=== PATIENT | female | born 1940 | race Caucasian/White ===

== ENCOUNTER 2017-02-20 08:49 | Inpatient (IN) | payer MEDICARE, OTHER ==
[2017-02-20] MEDS ORDERED: SODIUM CHLORIDE 0.9% 1,000 ML IV STA (09:12)
[2017-02-20] MEDS ORDERED: SODIUM CHLORIDE 0.9% 500 ML IV STA (09:12)
--- NOTE | 2017-02-20 09:56 | CT ---
EXAMINATION TYPE: CT brain tosha paulino DATE OF EXAM: 02/20/2017 9:42 AM COMPARISON: NONE HISTORY: Fall, altered mental status CT DLP: [address] of the brain was performed. The ventricles, basal cisterns and sulci overlying the cerebral convexities demonstrate mild to moder ate enlargement. There is no evidence for intracranial hemorrhage or sulcal effacement. There is decreased attenuatio n about the periventricular white matter and deep white matter of both cerebral hemispheres, compatib le with chronic small vessel ischemia. No mass effects are seen. If symptoms persist consider MRI. Osseous calvarium is intact. IMPRESSION: 1. Age related atrophic and chronic small vessel ischemic change without acute intracranial process seen at this time. CT Cervical Spine: Unenhanced CT of the cervical spine was performed with bone and soft tissue window settings submitted . Coronal and sagittal reconstruction is obtained. There is normal alignment and prevertebral soft tissues. No evidence for acute cervical fracture . Scattered degenerative disc disease and spondylosis. Biapical scarring. Moderate to large left pleur al effusion. IMPRESSION: 1. No evidence for acute fracture or subluxation of the cervical spine.
--- NOTE | 2017-02-20 10:01 | ED ---
General Adult HPI - General Chief complaint: Fall Stated complaint: Altered Mental Status Time Seen by Provider: 02/20/17 08:57 Source: EMS, RN notes reviewed, old records reviewed Mode of arrival: EMS Limitations: altered mental status - History of Present Illness Initial comments: This is a 76-year-old female ER for evaluation. Patient was found down short time after being checked on this morning. Patient herself at this time is nonverbal. Patient's medical records are obtained from history and chart - Related Data Home Medications Medication Instructions Recorded Confirmed ALPRAZolam [Xanax] 0.25 mg PO HS PRN 02/20/17 02/20/17 Acetaminophen [Tylenol] 500 - 1,000 mg PO Q4-6H PRN 02/20/17 02/20/17 Amiodarone HCl [Pacerone] 200 mg PO BID 02/20/17 02/20/17 Aspirin EC [Ecotrin Low Dose] 81 mg PO DAILY 02/20/17 02/20/17 Atorvastatin [Lipitor] 20 mg PO HS 02/20/17 02/20/17 Cholecalciferol [Vitamin D3] 5,000 unit PO DAILY 02/20/17 02/20/17 Clopidogrel Bisulfate [Plavix] 75 mg PO DAILY 02/20/17 02/20/17 Furosemide [Lasix] 20 mg PO DAILY 02/20/17 02/20/17 Latanoprost Ophth [Xalatan 0.005%] 1 drops RIGHT EYE HS 02/20/17 02/20/17 Lisinopril [Prinivil] 20 mg PO DAILY 02/20/17 02/20/17 Loratadine [Claritin] 10 mg PO DAILY PRN 02/20/17 02/20/17 Metoprolol Succinate (ER) [Toprol 50 mg PO DAILY 02/20/17 02/20/17 Xl] Sennosides-Docusate Sodium 1 tab PO HS PRN 02/20/17 02/20/17 [Senokot-S] hydrALAZINE HCL [Apresoline] 10 mg PO QID 02/20/17 02/20/17 Allergies Allergy/AdvReac Type Severity Reaction Status Date / Time Sulfa (Sulfonamide Allergy Unknown Verified 02/20/17 09:19 Antibiotics) Review of Systems ROS Statement: Those systems with pertinent positive or pertinent negative responses have been documented in the HPI. ROS Other: All systems not noted in ROS Statement are negative. Past Medical History Past Medical History: Atrial Fibrillation, CVA/TIA, Hypertension Past Surgical History: Cardiac Valve Replacement Past Psychological History: No Psychological Hx Reported Smoking Status: Unknown if ever smoked Past Alcohol Use History: Unable to Obtain Past Drug Use History: Unable to Obtain General Exam Limitations: altered mental status General appearance: alert, in no apparent distress Head exam: Present: atraumatic, normocephalic, normal inspection Eye exam: Present: normal appearance, PERRL, EOMI. Absent: scleral icterus, conjunctival injection, periorbital swelling ENT exam: Present: normal exam, mucous membranes moist Neck exam: Present: normal inspection. Absent: tenderness, meningismus, lymphadenopathy Respiratory exam: Present: normal lung sounds bilaterally. Absent: respiratory distress, wheezes, rales, rhonchi, stridor Cardiovascular Exam: Present: regular rate, normal rhythm, normal heart sounds. Absent: systolic murmur, diastolic murmur, rubs, gallop, clicks GI/Abdominal exam: Present: soft, normal bowel sounds. Absent: distended, tenderness, guarding, rebound, rigid Extremities exam: Present: normal inspection, full ROM, normal capillary refill. Absent: tenderness, pedal edema, joint swelling, calf tenderness Back exam: Present: normal inspection Neurological exam: Present: alert, oriented X3, CN II-XII intact Psychiatric exam: Present: normal affect, normal mood Skin exam: Present: warm, dry, intact, normal color. Absent: rash Course Vital Signs 02/20/17 02/20/17 02/20/17 08:50 10:32 11:17 Temperature 98.7 F Pulse Rate 65 62 65 Respiratory 20 18 18 Rate Blood Pressure 158/86 215/88 137/80 O2 Sat by Pulse 91 L 99 99 Oximetry EKG Findings - EKG Comments: EKG Findings:: EKG shows normal sinus rhythm rate of 63, IL 158, QRS 96, QTc 466 Medical Decision Making - Medical Decision Making 76 female the ER for evaluation of altered mental status, fall with unknown downtime, patient with positive UTI weakness dehydration. Patient will be admitted for IV antibiotics and fluid resuscitation. - Lab Data Result diagrams: 02/20/17 11:15 02/20/17 11:15 Lab Results 02/20/17 02/20/17 02/20/17 Range/Units 11:15 11:15 11:26 WBC 13.5 H (3.8-10.6) k/uL RBC 3.91 (3.80-5.40) m/uL Hgb 11.7 (11.4-16.0) gm/dL Hct 37.9 (34.0-46.0) % MCV 96.9 (80.0-100.0) fL MCH 30.0 (25.0-35.0) pg MCHC 31.0 (31.0-37.0) g/dL RDW 14.3 (11.5-15.5) % Plt Count 275 (150-450) k/uL Neutrophils % 89 % Lymphocytes % 5 % Monocytes % 4 % Eosinophils % 0 % Basophils % 0 % Neutrophils # 12.0 H (1.3-7.7) k/uL Lymphocytes # 0.7 L (1.0-4.8) k/uL Monocytes # 0.5 (0-1.0) k/uL Eosinophils # 0.0 (0-0.7) k/uL Basophils # 0.0 (0-0.2) k/uL Hypochromasia Marked Sodium 137 (137-145) mmol/L Potassium 4.4 (3.5-5.1) mmol/L Chloride 99 (98-107) mmol/L Carbon Dioxide 24 (22-30) mmol/L Anion Gap 14 mmol/L BUN 20 H (7-17) mg/dL Creatinine 0.89 (0.52-1.04) mg/dL Est GFR (MDRD) Af Amer >60 (>60 ml/min/1.73 sqM) Est GFR (MDRD) Non-Af >60 (>60 ml/min/1.73 sqM) Glucose 146 H (74-99) mg/dL Calcium 9.2 (8.4-10.2) mg/dL Phosphorus 3.7 (2.5-4.5) mg/dL Magnesium 1.6 (1.6-2.3) mg/dL Total Bilirubin 0.8 (0.2-1.3) mg/dL AST 21 (14-36) U/L ALT 22 (9-52) U/L Alkaline Phosphatase 79 (38-126) U/L Total Protein 6.6 (6.3-8.2) g/dL Albumin 3.7 (3.5-5.0) g/dL Urine Color Light Yellow Urine Appearance Cloudy H (Clear) Urine pH 6.0 (5.0-8.0) Ur Specific [place] 1.009 (1.001-1.035) Urine Protein 3+ H (Negative) Urine Glucose (UA) Negative (Negative) Urine Ketones 1+ H (Negative) Urine Blood Small H (Negative) Urine Nitrite Negative (Negative) Urine Bilirubin Negative (Negative) Urine Urobilinogen <2.0 (<2.0) mg/dL Ur Leukocyte Esterase Large H (Negative) Urine RBC 13 H (0-5) /hpf Urine WBC 45 H (0-5) /hpf Ur Squamous Epith Cells 5 H (0-4) /hpf Amorphous Sediment Occasional H (None) /hpf Urine Bacteria Rare H (None) /hpf - Radiology Data Radiology results: report reviewed (CT brain and C-spine, chest x-ray and x-ray of pelvis are negative for traumatic injury), image reviewed Disposition Clinical Impression: Fall, Weakness, UTI (urinary tract infection), Altered mental state Disposition: ADMITTED IP TO THIS HOSP Condition: Fair Referrals: Kunal Rg MD [Primary Care Provider] - 1-2 days
--- NOTE | 2017-02-20 11:02 | XR ---
EXAMINATION TYPE: XR chest 1V DATE OF EXAM: 02/20/2017 10:47 AM COMPARISON: Prior chest x-ray January HISTORY: Pain, abnormal chest x-ray, found down TECHNIQUE: Single frontal view of the chest is obtained. FINDINGS: The patient is rotated and post median sternotomy. Aortic root stent is thought to be pres ent. Retrocardiac density is noted. Nodular density persists in the left midlung. Apical pleural thic kening again noted. There are overlying cardiac leads. Interstitium mildly increased. No evident pneu mothorax. Difficult to exclude an effusion on the left. IMPRESSION: Findings may be indicative of pulmonary venous hypertension and interstitial edema. Nadine elate clinically. There may be left lower lobe atelectasis versus pneumonia and associated effusion. Follow-up is recommended.
--- NOTE | 2017-02-20 11:03 | XR ---
AP pelvis HISTORY: Patient found on floor Single frontal view of the pelvis No comparisons Bone mineralization, joint spaces and alignment are maintained. Degenerative disc changes in the visu alized spine. Possible vascular calcifications within the pelvis. IMPRESSION: No fracture or dislocation.
[2017-02-20] MEDS: hydrALAZINE HCL 20 MG/ML 1 ML VIAL IVP STA ×2 (11:08→12:10)
[2017-02-20 11:37] LABS: Basophils % (A) 0 %; CH 29.8; CHCM 30.8; Eosinophils % (A) 0 %; HCT 37.9 % (34.0-46.0); HDW 3.11; HGB 11.7 gm/dL (11.4-16.0); Hypochromasia Marked; Luc # (Auto) 0.18; Luc % (Auto) 1; Lymphocytes # (A) 0.7 k/uL (1.0-4.8); Lymphocytes % (A) 5 %; MCV 96.9 fL (80.0-100.0); Mean Platelet Volume 7.7; Monocytes # (A) 0.5 k/uL (0-1.0); Monocytes % (A) 4 %; Neutrophils % (A) 89 %; RBC 3.91 m/uL (3.80-5.40); RDW 14.3 % (11.5-15.5); WBC 13.5 k/uL (3.8-10.6); WBC (Perox) 13.15
[2017-02-20 11:42] LABS: ALT 22 U/L (9-52); AST 21 U/L (14-36); Alkaline Phosphatase 79 U/L (38-126); Anion Gap 14 mmol/L; Blood Urea Nitrogen 20 mg/dL (7-17); Calcium 9.2 mg/dL (8.4-10.2); Carbon Dioxide 24 mmol/L (22-30); Chloride 99 mmol/L (98-107); Glucose 146 mg/dL (74-99); Magnesium 1.6 mg/dL (1.6-2.3); Non-African American GFR(MDRD) >60 (>60 ml/min/1.73 sqM); Phosphorous 3.7 mg/dL (2.5-4.5); Potassium 4.4 mmol/L (3.5-5.1); Sodium 137 mmol/L (137-145); Total Bilirubin 0.8 mg/dL (0.2-1.3); Total Protein 6.6 g/dL (6.3-8.2)
[2017-02-20 11:52] LABS: INR 1.1 (<1.1); Prothrombin Time 11.4 sec (9.0-12.0)
[2017-02-20 11:53] LABS: Amorphous Sediment,Urine Occasional /hpf; Appearance,Urine Cloudy (Clear); Bacteria,Urine Rare /hpf; Bilirubin,Urine Negative (Negative); Glucose,Urine (UA) Negative (Negative); Ketones,Urine 1+ (Negative); Leukocyte Esterase,Urine Large (Negative); Nitrite,Urine Negative (Negative); Particle Count 28583; Protein,Urine 3+ (Negative); RBC,Urine 13 /hpf (0-5); Specific Gravity,Urine 1.009 (1.001-1.035); Squamous Epithelial Cell,Urine 5 /hpf (0-4); UA Billing (MACRO vs. MICRO) MICRO; Urobilinogen,Urine <2.0 mg/dL (<2.0); WBC,Urine 45 /hpf (0-5)
[2017-02-20 11:59] LABS: Partial Thromboplastin Time 21.5 sec (22.0-30.0)
[2017-02-20 12:01] LABS: Creatine Kinase MB 1.9 ng/mL (0.0-2.4)
[2017-02-20 12:15] LABS: Troponin I 0.145 ng/mL (0.000-0.034)
[2017-02-20] MEDS ORDERED: HEPARIN SODIUM,PORCINE 5,000 UNIT/ML 1 ML VIAL IV ONE (12:17)
[2017-02-20] MEDS ORDERED: NITROGLYCERIN SL TABS 0.4 MG TAB SUBLINGUAL PRN (12:17)
[2017-02-20] MEDS ORDERED: HEPARIN SODIUM,PORCINE 5,000 UNIT/ML 1 ML VIAL IV PRN (12:17)
[2017-02-20] MEDS ORDERED: HEPARIN SODIUM,PORCINE/D5W PMX 25,000 UNIT in DEXTROSE/WATER 1 500ML.BAG IV SCH (12:30)
[2017-02-20] MEDS: SODIUM CHLORIDE 0.9% 1,000 ML IV SCH (13:32)
[2017-02-20] MEDS: ALPRAZolam 0.25 MG TAB PO PRN (17:41)
[2017-02-20] MEDS ORDERED: cloNIDine 0.1 MG/24HR PATCH 1 PATCH PATCH TRANSDERM SCH (18:00)
[2017-02-20] MEDS: LORazepam 2 MG/ML SYRINGE IV PRN (18:05)
[2017-02-20 18:33] LABS: Creatine Kinase MB 2.3 ng/mL (0.0-2.4)
[2017-02-20 18:36] LABS: Troponin I 0.196 ng/mL (0.000-0.034)
[2017-02-20] MEDS ORDERED: SENNOSIDES-DOCUSATE SODIUM 1 EACH TAB PO PRN (23:28)
[2017-02-20] MEDS ORDERED: RX INFO: IV CONTRAST WAS GIVEN 1 EACH MISC MISCELLANE PRN (23:34)
[2017-02-21] MEDS: LISINOPRIL 20 MG TAB PO SCH ×2 (00:38→10:26)
[2017-02-21] MEDS: ASPIRIN 81 MG CHEW PO SCH ×2 (00:38→10:26)
[2017-02-21] MEDS: AMIODARONE 200 MG TAB PO SCH (00:38)
[2017-02-21] MEDS: hydrALAZINE HCL 10 MG TAB PO SCH ×5 (00:38→20:37)
[2017-02-21 01:33] LABS: Creatine Kinase MB 2.2 ng/mL (0.0-2.4)
[2017-02-21 01:35] LABS: Troponin I 0.192 ng/mL (0.000-0.034)
[2017-02-21] MEDS: SODIUM CHLORIDE 0.9% 1,000 ML IV SCH ×3 (06:14→17:29)
[2017-02-21 06:49] LABS: Mean Platelet Volume 7.4
[2017-02-21 07:02] LABS: Cholesterol 163 mg/dL (<200); HDL Cholesterol 62 mg/dL (40-60); Triglycerides 96 mg/dL (<150)
[2017-02-21] MEDS ORDERED: ASPIRIN 325 MG TAB PO SCH (09:00)
[2017-02-21] MEDS ORDERED: ENOXAPARIN 40 MG/0.4 ML SYRINGE SQ SCH ×2 (09:00→10:30)
[2017-02-21] MEDS ORDERED: cefTRIAXone 1,000 MG in SODIUM CHLORIDE 0.9% 100 ML IVPB SCH (09:00)
--- NOTE | 2017-02-21 09:05 | P.PN ---
Progress Note - Text Psychiatric consult placed for 76 year female, for AMS. Patient was non verbal in ER, this morning she wakes easily with name called. She is unable to identify her full name, giving "Caryl" Unable to state where she is or todays date. Responds only with "no" or "I'm so tired". RN reports she was told this is a sudden and significant change in mental status. Will attempt again psychiatric evaluation later in day.
--- NOTE | 2017-02-21 09:08 | HP ---
DATE OF ADMISSION: 02/20/2017 PRESENTING COMPLAINT: Acute confusion. HISTORY OF PRESENTING COMPLAINT: This is a 76 -year-old patient of visiting physicians whose chronic stable medical conditions include atrial fibrillation, CHF, stroke, hyperlipidemia, hypertension, atrial fibrillation, blind in the left eye, glaucoma in the right eye. The patient lives at [facility]. Normally uses a cane to get about. She does her own ADL's including showers herself, takes the bus, walks to [facility] and back. Staff administers medication. Patient was brought into the ER. She was last seen in the morning and then she was found down on the floor between the bed and the night stand. EMS reports that patient responded to verbal opening her eyes, not talking, not able to answer questions. At baseline, the patient has some confusion, otherwise, does rather well. Patient came to the floor and when came to the floor, blood pressure was running high. Was not able to take any of her medications. Hence, has a Catapres patch and patient was rather agitated and had to be given some Ativan. Patient currently somnolent, not able to give history by herself. Review of systems cannot be done because patient rather somnolent. PAST MEDICAL HISTORY: Atrial fibrillation, congestive heart failure, stroke, hyperlipidemia, hypertension, atrial fibrillation, blind left eye. PAST SURGICAL HISTORY: Aortic valve replacement at [facility] December 2016. SOCIAL HISTORY: Lives at [place]. Patient smoked several years; stopped about 20 to 30 years ago. Family history of skin cancer. HOME MEDICATIONS: 1. Claritin 10 mg p.o. daily p.r.n. 2. Xalatan 0.005% one drop to right eye at bedtime. 3. Plavix 75 p.o. daily. 4. Prinivil 20 mg p.o. daily. 5. Aspirin 81 mg p.o. daily. 6. Tylenol. 7. Xanax 0.25 p.o. q.h.s. p.r.n. 8. Hydralazine 10 mg p.o. q.i.d. 9. Senokot-S one tablet p.o. q.h.s. 10. Vitamin D3 5000 units p.o. daily. 11. Toprol-XL 50 mg p.o. daily. 12. Lasix 20 mg p.o. daily. 13. Lipitor 20 mg p.o. q.h.s. 14. Amiodarone 200 mg p.o. b.i.d. ALLERGIES TO SULFA. On examination, temperature 98 on presentation: Temperature 98.7, pulse 59, respiration 20, blood pressure 150/86, pulse ox 91% on room air. Repeat blood pressure gone up to 220/85. GENERAL APPEARANCE: Average build, lying in bed somnolent. EYES: Cataract in the left eye. ( ) conjunctivae irregular left pupil. HEENT: External appearance of nose and ears normal. Oral cavity missing teeth. NECK: JVD not raised. Mass not palpable. RESPIRATORY: Effort normal. LUNGS: Decreased breath sounds. CARDIOVASCULAR: First and second sounds normal. No edema. ABDOMEN: Soft, nontender. Liver and spleen not palpable. LYMPHATIC: No lymph node palpable in neck or axillae. PSYCHIATRY: Unable to assess. NEUROLOGICAL: Left pupil is abnormal. No facial asymmetry. There is no stiffness ( ) limb. Dermatological: Bruising of both the arms distally. No breakdown of skin. 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 Plantars equivocal. INVESTIGATIONS: White count 13.5, hemoglobin 11.7, potassium 4.4. BUN 20, creatinine 0.89, troponin 0.145, 0.196. UA positive for leukocyte esterase and WBC. CT scan of the head and neck and cervical spine shows age-related atrophic changes. ASSESSMENT: 1. This is a patient who presents with was found on just mumbling. This well could be a brain stem stroke affecting the ventricular ( ) system and having alteration of sensorium. Also contribution from urinary tract infection definitely possible, that of which could be causing acute delirium. 2. Hypertensive urgency present on admission. 3. Chronic congestive heart failure, ejection fraction not known. 4. Hyperlipidemia. 5. Paroxysmal atrial fibrillation, currently may be in sinus rhythm. 6. CODE STATUS: DNR. PLAN: Neuro checks are in place. Patient has a small troponin leak, but I doubt this is acute coronary syndrome especially in the face of her stroke, heparin may be more detrimental. Aspiration precautions will be maintained. We will do a repeat CT in the morning with contrast. Overall prognosis is guarded given her age. CODE STATUS: DNR. [place] to Visiting Physician.
--- NOTE | 2017-02-21 09:20 | P.CN ---
Psychiatric Consult - . Consult date: 02/21/17 Consult:: 02/21/17 09:10 DATE OF SERVICE: [02/21/2017] IDENTIFYING DATA: This patient is a [76-year-old]-year-old [female ] who was admitted to the mental health unit through [emergency room]. HISTORY OF PRESENT ILLNESS: The patient the patient was found down on the floor and brought to the emergency room where was reported she was nonverbal. She was in her usual state of health when staff at the [facility] found her down on the floor between her bed and her nightstand. She normally ambulates with a cane and does her own ADLs including showering herself she [place] and [place]. She was nonverbal in the emergency room last night UTI is suspected as well as possible vascular cause. PAST PSYCHIATRIC HISTORY: [No family members at bedside, no known psychiatric history.]. MENTAL STATUS EXAM: [Patient awoke with her name being called, was unable to identify herself location or date. He could only respond with "no" and "I'm so tired"]. IMPRESSIONS: Patient with second change in mental status. Workup in progress of possible vascular cause, as well as UTI. PLAN: [We will follow along with you.].
[2017-02-21] MEDS: CLOPIDOGREL 75 MG TAB PO SCH (10:26)
[2017-02-21] MEDS: METOPROLOL SUCCINATE (ER) 50 MG TAB.ER.24H PO SCH (10:26)
--- NOTE | 2017-02-21 10:57 | ECHOF ---
Referral Reason:elev trop MEASUREMENTS -------- HEIGHT: 157.5 cm WEIGHT: 59.0 kg BP: 181/74 RVIDd: 2.9 cm (< 3.3) IVSd: 1.4 cm (0.6 - 1.1) LVIDd: 4.0 cm (3.9 - 5.3) LVPWd: 1.5 cm (0.6 - 1.1) IVSs: 1.7 cm LVIDs: 2.6 cm LVPWs: 2.0 cm LA Diam: 3.7 cm (2.7 - 3.8) LAESV Index (A-L): 37.83 ml/m Ao Diam: 2.4 cm (2.0 - 3.7) MV EXCURSION: 14.273 mm (> 18.000) MV EF SLOPE: 106 mm/s (70 - 150) EPSS: 0.9 cm MV E Toby: 0.83 m/s MV DecT: 188 ms MV A Toby: 0.94 m/s MV E/A Ratio: 0.87 AV maxP.34 mmHg AV meanP.08 mmHg RAP: 5.00 mmHg RVSP: 32.25 mmHg FINDINGS -------- Sinus rhythm with extra systolic beats. This was a technically difficult study with suboptimal views. The left ventricular size is normal. There is moderate concentric left ventricular hypertrophy. Overall left ventricular systolic function is low-normal with, an EF between 50 - 55 %. The right ventricle is normal in size. LA is moderately dilated 34-39 ml/m2 The right atrium was not well visualized. Peak/mean gradient across the Aortic Valve is 34.34mmHg / 15.08mmHg. There is mild regurgitation of the bioprosthetic aortic valve. The mitral valve leaflets are moderately thickened. Moderate mitral annular calcification present. Sqal-sk-[id number] mitral regurgitation is present. Mild tricuspid regurgitation present. Right ventricular systolic pressure is normal at < 35 mmHg. The aortic root size is normal. Normal inferior vena cava with normal inspiratory collapse consistent with estimated right atrial pressure of 5 mmHg. The pericardium is normal. CONCLUSIONS -------- 1. Sinus rhythm with extra systolic beats. 2. The mitral valve leaflets are moderately thickened. 3. Moderate mitral annular calcification present. 4. [id number] mitral regurgitation is present. 5. Mild tricuspid regurgitation present. 6. Right ventricular systolic pressure is normal at < 35 mmHg. 7. The aortic root size is normal. 8. Normal inferior vena cava with normal inspiratory collapse consistent with estimated right atrial pressure of 5 mmHg. 9. The pericardium is normal. 10. This was a technically difficult study with suboptimal views. 11. The left ventricular size is normal. 12. There is moderate concentric left ventricular hypertrophy. 13. The right ventricle is normal in size. 14. LA is moderately dilated 34-39 ml/m2 15. The right atrium was not well visualized. 16. Peak/mean gradient across the Aortic Valve is 34.34mmHg / 15.08mmHg. 17. There is mild regurgitation of the bioprosthetic aortic valve. ASSOCIATE RELATIONS SPECIALIST: Leatha Weller RDCS
--- NOTE | 2017-02-21 15:05 | US ---
EXAMINATION TYPE: US carotid duplex BILAT DATE OF EXAM: 02/21/2017 2:51 PM COMPARISON: NONE CLINICAL HISTORY: collapse. fall, AMS, poor historian Suboptimal scan due to patient unable to cease talking and move head. 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 Plaque in bulb and CCA. Elevated right ECA. N o flow detected in left CCA. Criteria for Assigning % of Stenosis / Diameter reduction (Estimation based on the indirect measurements of the internal carotid artery velocities (ICA PSV). 1. Normal (no stenosis)=ICA PSV < 125 cm/s: ratio < 2.0: ICA EDV<40 cm/s. 2. Less than 50% stenosis=ICA PSV < 125 cm/s: ratio < 2.0: ICA EDV<40 cm/s. 3. 50 to 69% stenosis=ICA PSV of 125 to 230 cm/s: ration 2.0 ? 4.0: ICA EDV 40-100 cm/s. 4. Greater than 70% stenosis to near occlusion= ICA PSV > 230 cm/s: ratio > 4.0: ICA EDV > 100 cm/s. 5. Near occlusion= ICA PSV velocities may be low or undetectable: variable ratio and ICA EDV. 6. Total occlusion=unable to detect flow.
--- NOTE | 2017-02-21 16:29 | CT ---
EXAMINATION TYPE: CT angio head DATE OF EXAM: 02/21/2017 4:07 PM COMPARISON: Previous CT scan of the brain dated 02/20/2017. HISTORY: Patient having possible stroke, AMS CT DLP: 1101 mGycm Automated exposure control for dose reduction was used. TECHNIQUE: Performed with IV Contrast, patient injected with 100 mL of Omnipaque 350. FINDINGS: There are generalized changes of sulcal prominence and ventriculomegaly compatible with atr ophic change. Ventriculomegaly may be out of keeping with the amount of sulcal prominence. I could no t exclude some degree of normal pressure hydrocephalus. There has been interval development of a smal l area of lucency in the erazo radiata on the left. This was not present previously and may represen t a lacunar infarct. There is a origin to the right posterior cerebral artery. The left vertebral artery is dominant . There is an occlusion of the M1 segment of the left middle cerebral artery. This is partially reconst ituted via a patent anterior communicating artery. IMPRESSION: 1. 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 2. EVOLVING INFARCT IN THE ERAZO RADIATA ON THE LEFT. 3. ATROPHIC CHANGES. 4. I COULD NOT EXCLUDE SOME DEGREE OF NORMAL PRESSURE HYDROCEPHALUS.
[2017-02-21] MEDS: ATORVASTATIN 20 MG TAB PO SCH (17:28)
--- NOTE | 2017-02-21 18:25 | P.CONS ---
History of Present Illness - Reason for Consult Consult date: 02/21/17 Altered mental status - History of Present Illness This is a 76-year-old female being evaluated by the neurology service for altered mental status and fall. She lives at [facility], and is self- sufficient with her ADLs on a daily basis. Found down on the floor in her room by the bed. She was brought in to [facility] emergency room via EMS. She was not responding to commands and she was nonverbal. In the ER her lab values were relatively normal. A CT of the cervical spine showed no trauma. Initial CT of the head showed some atrophic changes along with some chronic small vessel ischemic changes but there was no acute intracranial abnormality. Pelvic exam showed no fracture. Her carotid Doppler was limited due to movement but did show significant stenosis of the right CCA, and elevated pressure in the right external carotid artery. There was no flow detected in the left common carotid artery. A subsequent CTA of the head did show occlusion of the M1 segment of the left middle cerebral artery with partial reconstruction via a patent anterior communicating artery. There was a new small area of infarct in the erazo radiata on the left. There was also some possibility of normal pressure hydrocephalus. Her urinalysis did show a urinary tract infection. Her blood pressure on presentation was quite elevated and remains somewhat elevated. At the time of my exam she is resting comfortably in bed in no acute distress. 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 History of Any Multi-Drug Resistant Organisms: None Reported Past Surgical History: Cardiac Valve Replacement Additional Past Surgical History / Comment(s): 12/2016 aortic valve replacement at [facility]. Other surgeries unknown. Past Anesthesia/Blood Transfusion Reactions: No Reported Reaction Past Psychological History: Anxiety Additional Psychological History / Comment(s): Pt resides at [facility]. She uses a cane most of the time. She performs her own ADLs. She showers herself, takes the bus out, walks to the light house and back. Staff manage her medications. Smoking Status: Former smoker Past Alcohol Use History: None Reported Additional Past Alcohol Use History / Comment(s): Pt started smoking about 1952 and has mentioned to [place] staff that she quit about 20-30 yrs ago. Past Drug Use History: None Reported - Past Family History Mother Family Medical History: Cancer Additional Family Medical History / Comment(s): skin cancer. Father Family Medical History: Unable to Obtain Medications and Allergies Home Medications Medication Instructions Recorded Confirmed Type ALPRAZolam [Xanax] 0.25 mg PO HS PRN 02/20/17 02/20/17 History Acetaminophen [Tylenol] 500 - 1,000 mg PO Q4-6H PRN 02/20/17 02/20/17 History Amiodarone HCl [Pacerone] 200 mg PO BID 02/20/17 02/20/17 History Aspirin EC [Ecotrin Low Dose] 81 mg PO DAILY 02/20/17 02/20/17 History Atorvastatin [Lipitor] 20 mg PO HS 02/20/17 02/20/17 History Cholecalciferol [Vitamin D3] 5,000 unit PO DAILY 02/20/17 02/20/17 History Clopidogrel Bisulfate [Plavix] 75 mg PO DAILY 02/20/17 02/20/17 History Furosemide [Lasix] 20 mg PO DAILY 02/20/17 02/20/17 History Latanoprost Ophth [Xalatan 0.005%] 1 drops RIGHT EYE HS 02/20/17 02/20/17 History Lisinopril [Prinivil] 20 mg PO DAILY 02/20/17 02/20/17 History Loratadine [Claritin] 10 mg PO DAILY PRN 02/20/17 02/20/17 History Metoprolol Succinate (ER) [Toprol 50 mg PO DAILY 02/20/17 02/20/17 History Xl] Sennosides-Docusate Sodium 1 tab PO HS PRN 02/20/17 02/20/17 History [Senokot-S] hydrALAZINE HCL [Apresoline] 10 mg PO QID 02/20/17 02/20/17 History Allergies Allergy/AdvReac Type Severity Reaction Status Date / Time Sulfa (Sulfonamide Allergy Unknown Verified 02/20/17 09:19 Antibiotics) Physical Exam Vitals: Vital Signs Temp Pulse Resp BP Pulse Ox 02/21/17 16:00 97.2 F L 55 L 17 165/64 98 02/21/17 12:00 48 L 18 170/74 99 02/21/17 08:00 97.4 F L 53 L 17 160/76 100 02/21/17 04:00 97.5 F L 52 L 18 96/51 99 02/21/17 00:00 52 L 18 161/55 99 02/20/17 20:00 98.9 F 51 L 16 138/59 100 Intake and Output 02/21/17 02/21/17 02/21/17 06:59 14:59 22:59 Intake Total 0 Balance 0 Intake: Oral 0 Other: Voiding Method Toilet Toilet Toilet Diaper Diaper # Voids 1 2 Weight 52 kg - Constitutional General appearance: no acute distress, thin - EENT Left eye clouding, likely from chronic cataracts and/or glaucoma Eyes: edentulous, EOMI, no ptosis ENT: hard of hearing - Neck Neck: normal ROM, no rigidity - Respiratory Respiratory: negative: prolonged expiration, prolonged inspiration - Cardiovascular Rhythm: irregularly irregular - Gastrointestinal General gastrointestinal: no distended, no tenderness - Neurologic Patient is awake and oriented to person only. Speech is normal. She is somewhat confused, but answers appropriately and follows commands well. Naming is intact. There is no facial asymmetry. Strength is 4 out of 5 in right upper and lower extremities 4 minus out of 5 and left upper and lower extremities. There is no detected sensory deficit. Results CBC & Chem 7: 02/21/17 06:19 02/20/17 11:15 Labs: Abnormal Lab Results - Last 24 Hours (Table) 02/20/17 02/20/17 02/21/17 Range/Units 17:44 17:44 00:11 APTT 63.6 H (22.0-30.0) sec Total Creatine Kinase 206 H 204 H (30-135) U/L Troponin I 0.196 H* 0.192 H* (0.000-0.034) ng/mL HDL Cholesterol (40-60) mg/dL 02/21/17 02/21/17 02/21/17 Range/Units 00:11 06:19 06:19 APTT 64.0 H 60.1 H (22.0-30.0) sec Total Creatine Kinase (30-135) U/L Troponin I (0.000-0.034) ng/mL HDL Cholesterol 62 H (40-60) mg/dL Assessment and Plan (1) CVA (cerebral vascular accident) Status: Acute (2) Hypertension Status: Chronic (3) Atrial fibrillation Status: Acute (4) Altered mental state Status: Acute (5) Fall Status: Acute (6) UTI (urinary tract infection) Status: Acute (7) Weakness Status: Acute (8) Acute encephalopathy Status: Acute Plan: The patient has likely suffered a stroke as evidenced by lacunar infarct her CTA. She is also likely having some acute encephalopathy from her urinary tract infection. Recommend physical therapy, occupational therapy, speech therapy continued evaluation. Recommend cardiology evaluation. Continue Lipitor and Plavix. Continue neurological checks. Continue treatment for her urinary tract infection. If symptoms progress we may consider MRI. I have ordered an EEG and serum homocysteine level. We will continue to follow. I have reviewed the history and physical on the above patient. I have reviewed the above note, and agree.
--- NOTE | 2017-02-21 20:01 | PN ---
DATE OF SERVICE: 02/21/2017 PRESENTING COMPLAINT: Acute confusion. INTERVAL HISTORY: This is a 76-year-old patient who lives at the [facility]. Patient, generally speaking, is ambulatory and able to care for herself; however, she was found down on the floor between the bed and the nightstand. Today patient is awake and walking with assistance and a walker, getting to a wheelchair for a test. Review of systems done for constitutional, cardiovascular, GI, pulmonary with some difficulty; relevant findings as above. CURRENT MEDICATIONS: 1. Alprazolam 2. Atorvastatin. 3. Ceftriaxone. 4. Clonidine. PHYSICAL EXAMINATION: VITAL SIGNS: Temperature 97.4, pulse 53, respiration 17, blood pressure 170/74, oxygen saturation 99% on 2 L nasal cannula. GENERAL APPEARANCE: Patient is awake, ambulatory with assistance and a walker. Pale. Weak. EYES: Pupils equal. Conjunctivae normal. NECK: JVD not raised. Mass not palpable. LUNGS: Sounds slightly decreased. Respiratory effort normal. Unlabored. CARDIOVASCULAR: S1, S2 normal. No edema noted. ABDOMEN: Soft, nontender. Liver and spleen not palpable. PSYCHIATRIC: Patient is awake and alert. Mood and affect are normal. INVESTIGATIONS: White blood cell count 13.5. INR 1.1. Sodium 137, potassium 4.4. BUN 20, creatinine 0.89. Glucose 146. Troponin done serially are 0.145, 0.196, 0.192. Urinalysis shows +3 protein, positive for leukocyte esterase, positive for red blood cells, positive for white blood cells. Carotid Doppler shows significant stenosis in the right CCA, plaque in the bulb and CCA, elevated right ECA. No flow detected in left CCA. ASSESSMENT: 1. Brainstem stroke possibly affecting the system ( ) altered sensorium. 2. Hypertensive urgency, present on admission. 3. Chronic congestive heart failure, ejection fraction unknown. 4. Hyperlipidemia. 5. Paroxysmal atrial fibrillation, currently may be in sinus rhythm. 6. CODE STATUS DNR. PLAN: Continue neuro checks. Aspiration precautions will be continued. Carotid Doppler revealed significant arterial stenosis. Will reach out to either [facility] or next of kin to determine next intervention or what the desires of the patient are. Overall prognosis is guarded, given her age. CODE STATUS DNR.
[2017-02-21] MEDS: LATANOPROST 0.005% OPHTH DROPS 2.5 ML BTL RIGHT EYE SCH (20:37)
[2017-02-21] MEDS: LORazepam 2 MG/ML SYRINGE IV PRN (20:38)
--- NOTE | 2017-02-21 22:25 | P.CRDCN ---
History of Present Illness Consult date: 02/21/17 Chief complaint: Change in mental status History of present illness: This is a pleasant 76-year-old female patient who sees Dr. WILFREDO Rosales as an outpatient with a past medical history significant for aortic valve disease and status post TAVR was performed at [facility] recently, coronary artery disease, hypertension, dyslipidemia, and possible paroxysmal atrial fibrillation, was brought to the hospital by ambulance with a change in mental status. The patient is unable to provide a detailed history and the history was taken from the ER notes as well as from the previous medical notes during this admission. The patient was found on the floor for unknown duration. She also was found to have change in mental status. The initial computed tomography scan of the brain did not show any acute abnormalities but subsequently the repeated computed tomography scan of the brain showed occluded left middle cerebral artery. She underwent carotid duplex study which showed severe disease involving the right internal carotid artery and occluded left internal carotid artery. The EKG showed sinus rhythm with diffuse baseline artifact. The cardiac enzymes were checked and came in to be slightly abnormal. We get involved in the care of the patient because the abnormal cardiac enzymes. There is no indication that the patient was experiencing any chest pain or discomfort or any shortness. She underwent an echocardiogram which is a still pending at this point. Currently she is on aspirin and she is also on a statin. I would consider treating the patient conservatively at this point in view of the absence of chest discomfort and ischemic EKG changes and also the change in mental status of the patient. Past Medical History Past Medical History: Atrial Fibrillation, Heart Failure, CVA/TIA, Eye Disorder , Hyperlipidemia, Hypertension Additional Past Medical History / Comment(s): Afib since aortic valve replacement 12/2016, CVA in 2009-no residual, glaucoma R eye, blind in L eye. History of Any Multi-Drug Resistant Organisms: None Reported Past Surgical History: Cardiac Valve Replacement Additional Past Surgical History / Comment(s): 12/2016 aortic valve replacement at [facility]. Other surgeries unknown. Past Anesthesia/Blood Transfusion Reactions: No Reported Reaction Past Psychological History: Anxiety Additional Psychological History / Comment(s): Pt resides at [facility]. She uses a cane most of the time. She performs her own ADLs. She showers herself, takes the bus out, walks to the light house and back. Staff manage her medications. Smoking Status: Former smoker Past Alcohol Use History: None Reported Additional Past Alcohol Use History / Comment(s): Pt started smoking about 1952 and has mentioned to [facility] staff that she quit about 20-30 yrs ago. Past Drug Use History: None Reported - Past Family History Mother Family Medical History: Cancer Additional Family Medical History / Comment(s): skin cancer. Father Family Medical History: Unable to Obtain Medications and Allergies Home Medications Medication Instructions Recorded Confirmed Type ALPRAZolam [Xanax] 0.25 mg PO HS PRN 02/20/17 02/20/17 History Acetaminophen [Tylenol] 500 - 1,000 mg PO Q4-6H PRN 02/20/17 02/20/17 History Amiodarone HCl [Pacerone] 200 mg PO BID 02/20/17 02/20/17 History Aspirin EC [Ecotrin Low Dose] 81 mg PO DAILY 02/20/17 02/20/17 History Atorvastatin [Lipitor] 20 mg PO HS 02/20/17 02/20/17 History Cholecalciferol [Vitamin D3] 5,000 unit PO DAILY 02/20/17 02/20/17 History Clopidogrel Bisulfate [Plavix] 75 mg PO DAILY 02/20/17 02/20/17 History Furosemide [Lasix] 20 mg PO DAILY 02/20/17 02/20/17 History Latanoprost Ophth [Xalatan 0.005%] 1 drops RIGHT EYE HS 02/20/17 02/20/17 History Lisinopril [Prinivil] 20 mg PO DAILY 02/20/17 02/20/17 History Loratadine [Claritin] 10 mg PO DAILY PRN 02/20/17 02/20/17 History Metoprolol Succinate (ER) [Toprol 50 mg PO DAILY 02/20/17 02/20/17 History Xl] Sennosides-Docusate Sodium 1 tab PO HS PRN 02/20/17 02/20/17 History [Senokot-S] hydrALAZINE HCL [Apresoline] 10 mg PO QID 02/20/17 02/20/17 History Allergies Allergy/AdvReac Type Severity Reaction Status Date / Time Sulfa (Sulfonamide Allergy Unknown Verified 02/20/17 09:19 Antibiotics) Physical Exam Vitals: Vital Signs Temp Pulse Resp BP Pulse Ox 02/21/17 20:00 97.1 F L 53 L 17 179/76 93 L 02/21/17 16:00 97.2 F L 55 L 17 165/64 98 02/21/17 12:00 48 L 18 170/74 99 02/21/17 08:00 97.4 F L 53 L 17 160/76 100 02/21/17 04:00 97.5 F L 52 L 18 96/51 99 02/21/17 00:00 52 L 18 161/55 99 Intake and Output 02/21/17 02/21/17 02/21/17 06:59 14:59 22:59 Intake Total 0 Output Total 200 Balance 0 -200 Intake: Oral 0 Output: Urine 200 Other: Voiding Method Toilet Toilet Toilet Diaper Diaper # Voids 1 2 Weight 52 kg - Constitutional General appearance: mild distress - Respiratory Respiratory: bilateral: diminished - Cardiovascular Rhythm: regular Abnormal Heart Sounds: systolic murmur Results 02/21/17 06:19 02/20/17 11:15 Cardiac Enzymes 02/21/17 Range/Units 00:11 CK-MB (CK-2) 2.2 (0.0-2.4) ng/mL Troponin I 0.192 H* (0.000-0.034) ng/mL Coagulation 02/21/17 02/21/17 Range/Units 00:11 06:19 APTT 64.0 H 60.1 H (22.0-30.0) sec Lipids 02/21/17 Range/Units 06:19 Triglycerides 96 (<150) mg/dL Cholesterol 163 (<200) mg/dL HDL Cholesterol 62 H (40-60) mg/dL CBC 02/21/17 Range/Units 06:19 Plt Count 259 (150-450) k/uL Current Medications Generic Name Dose Route Start Last Admin Trade Name Freq PRN Reason Stop Dose Admin Alprazolam 0.25 mg 02/20/17 17:32 02/20/17 17:41 Xanax PO 0.25 mg TID PRN Administration Anxiety Aspirin 81 mg 02/20/17 23:30 02/21/17 10:26 Aspirin PO 81 mg DAILY LAURA Administration Atorvastatin Calcium 20 mg 02/21/17 21:00 02/21/17 17:28 Lipitor PO 20 mg HS LAURA Administration Clonidine HCl 1 patch 02/20/17 18:00 02/20/17 17:26 Catapres-Tts 0.1mg Patch TRANSDERM 1 patch Q7D LAURA Administration Clopidogrel Bisulfate 75 mg 02/21/17 09:00 02/21/17 10:26 Plavix PO 75 mg DAILY LAURA Administration Hydralazine HCl 10 mg 02/20/17 23:30 02/21/17 20:37 Apresoline PO 10 mg QID LAURA Administration Ceftriaxone Sodium 1,000 mg/ 50 mls @ 100 mls/hr 02/21/17 09:00 02/21/17 10: 24 Sodium Chloride IVPB 100 mls/hr DAILY LAURA Administration Sodium Chloride 1,000 mls @ 100 mls/hr 02/20/17 12:30 02/21/17 17:29 Saline 0.9% IV 100 mls/hr .Q10H LAURA Administration Latanoprost 1 drops 02/21/17 21:00 02/21/17 20:37 Xalatan 0.005% RIGHT EYE 1 drops HS LAURA Administration Lisinopril 20 mg 02/20/17 23:30 02/21/17 10:26 Zestril PO 20 mg DAILY LAURA Administration Lorazepam 1 mg 02/20/17 18:01 02/21/17 20:38 Ativan IV 1 mg Q4HR PRN Administration Anxiety Metoprolol Succinate 50 mg 02/21/17 09:00 02/21/17 10:26 Toprol Xl PO 50 mg DAILY LAURA Administration Miscellaneous Information 1 each 02/20/17 23:34 Rx Info: Iv Contrast Was Given MISCELLANE 02/22/17 23:35 DAILY PRN Per Protocol Nitroglycerin 0.4 mg 02/20/17 12:17 Nitrostat SUBLINGUAL Q5M PRN Chest Pain Senna/Docusate Sodium 1 each 02/20/17 23:28 Senokot-S PO HS PRN Constipation Intake and Output 02/21/17 02/21/17 02/21/17 06:59 14:59 22:59 Intake Total 0 Output Total 200 Balance 0 -200 Intake: Oral 0 Output: Urine 200 Other: Voiding Method Toilet Toilet Toilet Diaper Diaper # Voids 1 2 Weight 52 kg 02/21/17 06:19 Assessment and Plan Plan: Assessment #1 change in mental status #2 possible acute stroke #3 mildly abnormal cardiac enzymes #4 hypertension #5 dyslipidemia #6 carotid artery disease bilaterally Plan #1 neurology service is on the case #2 continue the aspirin as well as a statin and the metoprolol #3 follow-up with the echocardiogram #4 consider conservative medical approach at this point of time #5 follow-up with the patient
[2017-02-22] MEDS: ALPRAZolam 0.25 MG TAB PO PRN (00:30)
[2017-02-22] MEDS: ACETAMINOPHEN TAB 325 MG TAB PO PRN ×2 (00:30→04:09)
[2017-02-22] MEDS: LORazepam 2 MG/ML SYRINGE IV PRN (04:09)
[2017-02-22] MEDS: SODIUM CHLORIDE 0.9% 1,000 ML IV SCH (06:05)
[2017-02-22 06:19] LABS: Mean Platelet Volume 7.6
[2017-02-22] MEDS: AMIODARONE 200 MG TAB PO SCH (08:49)
[2017-02-22] MEDS ORDERED: hydrALAZINE HCL 10 MG TAB PO SCH ×2 (09:00)
[2017-02-22] MEDS: CLOPIDOGREL 75 MG TAB PO SCH (09:42)
[2017-02-22] MEDS: ASPIRIN 81 MG CHEW PO SCH (09:42)
[2017-02-22] MEDS: LISINOPRIL 20 MG TAB PO SCH (11:32)
--- NOTE | 2017-02-22 12:05 | EEG ---
DATE OF SERVICE: 02/21/2017 REASON FOR TESTING: Altered mental status. AGE: 76Y DESCRIPTION OF THE PROCEDURE: This EEG was performed using a 21-channel digital electroencephalograph, following the international 10 - 20 system. DESCRIPTION OF THE RECORDING: From the beginning of the tracing, and with the patient's eyes closed, the background rhythm was mostly consisting of 8 Hz alpha frequency in the posterior occipital leads. No obvious asymmetry is seen. Photic stimulation was performed with a minimal driving response seen. No pathological waves were elicited. Hyperventilation was not performed. Rare movement artifacts are seen. The patient remains awake throughout the tracing. Hyperventilation was not performed. Significant movement artifacts are noticed near the end of the tracing. Her EKG lead showed a regular rate and rhythm. INTERPRETATION: This awake EEG can be considered within normal limits. There was no asymmetry seen. No epileptiform discharges were noticed. The absence of epileptiform discharges does not rule out the diagnosis of epilepsy, therefore, clinical correlation is recommended.
[2017-02-22] MEDS: METOPROLOL SUCCINATE (ER) 50 MG TAB.ER.24H PO SCH (12:21)
--- NOTE | 2017-02-22 12:41 | P.PN ---
Subjective Principal diagnosis: Stroke This 76-year-old female continuing be evaluated by the neurology service for altered mental status and a fall. Recall that her initial studies of the cervical spine showed no trauma. Her CT it also showed some atrophic changes and some chronic small vessel ischemia but no acute intracranial abnormalities or present at that time. Her carotid Doppler showed significant stenosis of the right common carotid artery. Her repeat head CT did show a lacunar infarct with the erazo radiata on the left. She is also being treated for urinary tract infection which is been contributing to her altered mental status. At the time my evaluation she is resting comfortably in bed and is more alert today. Objective - Vital Signs Vital signs: Vital Signs Temp 98.0 F 02/22/17 08:00 Pulse 54 L 02/22/17 11:31 Resp 16 02/22/17 11:31 BP 228/88 02/22/17 11:31 Pulse Ox 95 02/22/17 11:31 Intake & Output 02/21/17 02/22/17 02/22/17 18:59 06:59 18:59 Intake Total 0 800 50 Output Total 200 Balance 0 600 50 Weight 53.1 kg Intake: IV 800 Sodium Chloride 0.9% 1, 800 000 ml @ 100 mls/hr IV . Q10H LAURA Rx#:[id number] Oral 0 50 Output: Urine 200 Other: Voiding Method Toilet Toilet # Voids 2 1 - Constitutional Constitutional Comment(s): Left eye changes likely from chronic cataracts and glaucoma. General appearance: Present: cooperative, no acute distress, thin - EENT Eyes: Present: edentulous, EOMI - Neck Neck: Present: normal ROM. Absent: rigidity - Respiratory Respiratory: negative: prolonged expiration, prolonged inspiration - Cardiovascular Rhythm: regular - Gastrointestinal General gastrointestinal: Absent: distended, tenderness - Neurologic Neurologic Comment(s): She is alert awake and oriented 3 today. Speech is normal. There is no facial asymmetry. Strength exam is unchanged from yesterday's. There is no sensory deficit detected. - Labs CBC & Chem 7: 02/22/17 05:47 02/20/17 11:15 Assessment and Plan (1) CVA (cerebral vascular accident) Status: Acute (2) Hypertension Status: Chronic (3) Atrial fibrillation Status: Acute (4) Altered mental state Status: Acute (5) Fall Status: Acute (6) UTI (urinary tract infection) Status: Acute (7) Weakness Status: Acute (8) Acute encephalopathy Status: Acute (9) Carotid stenosis Status: Acute Plan: The patient has suffered a stroke as evidenced by left sided lacunar infarct her CTA. She is also likely having some acute encephalopathy from her urinary tract infection, which is improving. Recommend physical therapy, occupational therapy, speech therapy continued evaluation. Recommend continued cardiology evaluation. Continue Lipitor and Plavix. Continue neurological checks. Continue treatment for her urinary tract infection. If symptoms progress we may consider MRI. Her EEG was normal and serum homocysteine level is pending. We may be consulted on as-needed basis. I have reviewed the history and physical on the above patient. I have reviewed the above note, and agree.
[2017-02-22] MEDS: hydrALAZINE HCL 10 MG TAB PO SCH ×3 (14:08→19:45)
[2017-02-22] MEDS: amLODIPine 5 MG TAB PO SCH (14:08)
--- NOTE | 2017-02-22 16:43 | PN ---
DATE OF SERVICE: 02/21/2017 ATTENDING NOTE: Patient was seen and examined by me yesterday on 02/21/2017. I discussed and reviewed the note of my nurse practitioner Ms. Lambert. This is a patient who presented with extremity altered sensation, was not able to get about. Far more awake today, able to answer simple questions, actually using a walker to walk 2 or 3 steps. Neurological work-up is in place. On examination, LUNGS: Decreased breath sounds. CARDIOVASCULAR: First and second sounds normal. PSYCH: Patient is able to answer simple questions. Moving all 4 limbs. Patient's carotid Doppler showing some stenosis on the right common carotid artery. Patient does have occlusion of the M1 segment of the left middle cerebral artery involving infarct in the erazo radiata on the left. ASSESSMENT: 1. Acute stroke affecting the erazo radiata affecting overall sensorium of the patient. 2. Hypertensive urgency on presentation. 3. Paroxysmal atrial fibrillation. PLAN: At this point, continue current medication and treatment plan. Patient is already on aspirin, Lipitor and ceftriaxone. Given that patient is able to take pills we will stop the Catapres patch and resume patient's oral medications. Prognosis guarded.
--- NOTE | 2017-02-22 18:13 | PN ---
DATE OF SERVICE: 02/22/2017 PRESENTING COMPLAINT: Acute confusion. INTERVAL HISTORY: This is a 76-year-old patient who lives at [facility]. Patient, generally speaking is ambulatory and able to care for herself; however, she was found down on the floor between the bed and the nightstand. On exam today, patient is awake, slow to respond; however, responses are appropriate. Is able to answer very simple questions. Review of systems done for constitutional, cardiovascular, GI, pulmonary, with some difficulty, relevant findings as above. CURRENT MEDICATIONS: Alprazolam, atorvastatin, ceftriaxone, clonidine. PHYSICAL EXAM: VITAL SIGNS: Temperature 98.0, pulse 51, respirations 16, blood pressure 171/73, 96% oxygen saturation on room air. GENERAL APPEARANCE: Patient is awake, sitting up in the bed, able to answer simple questions, pale and weak, but in good spirits. EYES: Pupils equal. Conjunctivae are normal. NECK: JVD not raised. Mass not palpable. LUNGS: Slightly decreased bilaterally. Respiratory effort normal, unlabored. CARDIOVASCULAR: First and second sounds normal. No edema noted. ABDOMEN: Soft, nontender. Liver and spleen not palpable. PSYCHIATRIC: Patient is awake and alert. Mood and affect are normal. INVESTIGATIONS: Carotid Doppler reveals significant arterial stenosis. ASSESSMENT: 1. Brainstem stroke probably affecting the system altered sensorium. 2. Hypertensive urgency, present on admission. 3. Chronic congestive heart failure, ejection fraction unknown. 4. Hyperlipidemia. 5. Paroxysmal atrial fibrillation, currently may be in sinus rhythm to sinus antoine. 6. CODE STATUS: DO NOT RESUSCITATE. PLAN: Continue neuro checks, aspiration precautions will be continued as well. Carotid Doppler revealed significant arterial stenosis. Overall prognosis remains guarded given her age. CODE STATUS: DNR. Patient was seen and examined by HEMATOLOGY NURSE, Lurdes Lambert and all elements of the case were discussed with attending, Dr. Mejía.
[2017-02-22] MEDS: LATANOPROST 0.005% OPHTH DROPS 2.5 ML BTL RIGHT EYE SCH (19:46)
[2017-02-22] MEDS: ATORVASTATIN 20 MG TAB PO SCH (19:46)
[2017-02-22] MEDS ORDERED: ALPRAZolam 0.25 MG TAB ONE (23:45)
[2017-02-23] MEDS ORDERED: hydrALAZINE HCL 50 MG TAB PO STA (01:46)
[2017-02-23] MEDS ORDERED: amLODIPine 5 MG TAB PO STA (01:47)
[2017-02-23] MEDS: SODIUM CHLORIDE 0.9% 1,000 ML IV SCH ×2 (02:15→23:39)
[2017-02-23 06:27] LABS: Mean Platelet Volume 7.5
[2017-02-23] MEDS: hydrALAZINE HCL 10 MG TAB PO SCH ×2 (08:26→12:12)
[2017-02-23] MEDS: amLODIPine 5 MG TAB PO SCH ×2 (08:26→17:41)
[2017-02-23] MEDS: ASPIRIN 81 MG CHEW PO SCH (08:26)
[2017-02-23] MEDS: LISINOPRIL 20 MG TAB PO SCH ×2 (08:27→21:38)
[2017-02-23] MEDS: CLOPIDOGREL 75 MG TAB PO SCH (08:27)
[2017-02-23] MEDS: CEFUROXIME 250 MG TAB PO SCH ×2 (08:27→21:36)
--- NOTE | 2017-02-23 09:48 | PN ---
Mrs. Bowie is a known patient of aortic stenosis who had aortic replacement with TAVR approach. Patient is admitted to the hospital with altered mental status. The patient seems to be much more alert today and she seemed to be oriented to person and place. Does not appear to be in acute distress. Apparently she suffered a stroke to the left side, a lacunar infarct. Patient does have a history of hypertension and also has atrial fibrillation. Physical examination today reveals an elderly lady who is frail looking and does not appear to be in acute distress. Her blood pressure is about 207/86, pulse rate is about 55. Patient is on metoprolol and also amiodarone. The amiodarone was held because of long QT interval. We are also going to hold metoprolol because of bradycardia and treat her with Norvasc for blood pressure. Activity as tolerated. PLAN: Switch from metoprolol to Norvasc. Hold amiodarone. Increase activity. Follow the instructions of the neurologist.
--- NOTE | 2017-02-23 11:39 | PN ---
DATE OF SERVICE: 02/22/2017 ATTENDING NOTE: This patient was seen and examined by me, admitted with acute stroke. Much more perky today, talking. Able to tolerate some diet. Patient clearly states that she does not want any surgery of any kind. She makes her own decisions. Current medications include aspirin and Lipitor. On examination, temperature 96.7, pulse 57, [id number], blood pressure 106/82. On examination sitting up, awake, following commands. The patient is slightly weak on the left side. PSYCH: Alert and oriented x3. Urine culture unremarkable. ASSESSMENT: 1. Acute ( ) stroke, likely ischemic in a right-handed patient, causing some left-sided weakness right now. Patient mental status grossly improved. 2. Acute urinary tract infection. 3. Medical debility. PLAN: Continue with physical therapy. Increase patient's Lipitor to 40. Will change patient's ceftriaxone to p.o. Continue with physical therapy.
[2017-02-23] MEDS: hydrALAZINE HCL 25 MG TAB PO SCH ×2 (17:41→21:37)
[2017-02-23] MEDS: ATORVASTATIN 20 MG TAB PO SCH (21:36)
[2017-02-23] MEDS: LATANOPROST 0.005% OPHTH DROPS 2.5 ML BTL RIGHT EYE SCH (21:37)
--- NOTE | 2017-02-23 23:21 | PN ---
DATE OF SERVICE: 02/23/2017 PRESENTING COMPLAINT: Acute confusion. INTERVAL HISTORY: This is a 76-year-old patient who is at [facility]. Patient generally speaking is ambulatory and able to care for self; however, she was found down on the floor lying between the bed and the nightstand. On exam today patient is awake, alert, more conversant, interactive and responses appropriate. Patient is able to answer straightforward simple questions. Review of systems done for cardiac constitutional, cardiovascular, GI, pulmonary, with ( ) and findings as above. Current medication alprazolam, atorvastatin, ceftriaxone, clonidine. PHYSICAL EXAMINATION: VITAL SIGNS: Temperature 97.0, pulse 74, respiratory rate 16, blood pressure 173/72, oxygen saturation 95% on room air. GENERAL APPEARANCE: Patient is awake, sitting up in a chair able to answer simple questions, is very talkative this morning, in good spirits. EYES: Pupils equal. Conjunctivae normal. NECK: JVD not raised. Mass not palpable. LUNGS: Slightly decreased bilaterally. Respiratory effort normal. Unlabored. CARDIOVASCULAR: First and second sounds normal. No edema noted. ABDOMEN: Soft, nontender. Liver and spleen not palpable. PSYCHIATRIC: Patient is awake and alert. Mood and affect are normal. INVESTIGATIONS: Carotid Doppler reveals arterial stenosis ASSESSMENT: 1. Brain stem stroke probably affecting the system altered sensorium. 2. Hypertensive urgency, present on admission. 3. Chronic congestive heart failure, ejection fraction unknown. 4. Hyperlipidemia. 5. Paroxysmal atrial fibrillation, currently may be in sinus rhythm to sinus antoine. 6. CODE STATUS: DO NOT RESUSCITATE. PLAN: Continue neurochecks. Aspiration precautions will be continued as well. Cardiology has changed patient's medications; however, patient remains hypertensive. Metoprolol was discontinued and amiodarone was held as well. These are replaced with Norvasc. Overall prognosis guarded given the patient's age. CODE STATUS: DNR. Patient was seen and examined by nurse practitioner Silviano Lambert and all elements of care was discussed with attending Dr. Mejía. I performed a history and physical examination of this patient and discussed the same with the dictator. I agree with the dictator's note. Any additional findings/opinions, etc. will be noted.
[2017-02-24] MEDS: CEFUROXIME 250 MG TAB PO SCH ×2 (08:18→22:19)
[2017-02-24] MEDS: hydrALAZINE HCL 25 MG TAB PO SCH ×3 (08:18→22:59)
[2017-02-24] MEDS: LISINOPRIL 20 MG TAB PO SCH ×2 (08:18→22:19)
[2017-02-24] MEDS: ASPIRIN 81 MG CHEW PO SCH (08:18)
[2017-02-24] MEDS: CLOPIDOGREL 75 MG TAB PO SCH (08:18)
[2017-02-24] MEDS: amLODIPine 5 MG TAB PO SCH ×2 (08:19→22:20)
[2017-02-24] MEDS: ALPRAZolam 0.25 MG TAB PO PRN (08:24)
--- NOTE | 2017-02-24 08:54 | P.CN ---
Psychiatric Consult - . Consult date: 02/24/17 Consult:: DATE OF SERVICE: 02/24/2017 IDENTIFYING DATA: This patient is a 76-year-old female who was admitted for AMS, fall, weakness.. HISTORY OF PRESENT ILLNESS: The patient the patient was found down on the floor and brought to the emergency room where was reported she was nonverbal. She was in her usual state of health when staff at the [facility] found her down on the floor between her bed and her nightstand. She normally ambulates with a cane and does her own ADLs including showering herself she [place] and [place]. This morning she was awake and verbal, able to give history. States she had a stroke and infection. States her blood pressure is still too high. States she is doing ok otherwise. Says her mood is fine. PAST PSYCHIATRIC HISTORY: Patient denies any past history of mental illness.. PAST MEDICAL HISTORY: History of hypertension, atrial fibrillation.. ALLERGIES: Sulfa. CHEMICAL DEPENDENCY HISTORY: Patient denies current use of alcohol, no past history of problems with alcohol or drug abuse. She quit smoking 13 years ago. FAMILY PSYCHIATRIC HISTORY: States no family history of mental illness that she is aware of. FAMILY CHEMICAL DEPENDENCY HISTORY: States she is unaware of any chemical dependency with family members. LEGAL HISTORY: None. SOCIAL HISTORY: Patient is a 76-year-old female, living in an Assisted [facility]. No children. States that most of her friends have . She enjoys coloring. 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 Patient was born and raised in [place], attends [employer] when the heel seat pounder comes to the assisted living [facility].. MENTAL STATUS EXAM: Alert and oriented 3, good eye contact. Pleasant and cooperative. Speech normal volume rate and production. No VANESA no FOI, no delusions, no ideas of reference. Coherent logical and goal directed thought process. Denies auditory and visual hallucinations. Mood neutral to euthymic, affect full range decreased intensity. Denies suicidal or homicidal ideation. Insight partial, judgment grossly intact for treatment purposes.. IMPRESSIONS: 76-year-old female with recent history of CVA, hypertension and atrial fibrillation, had an altered mental status. Today patient is alert and oriented 3 no cognitive evidence of CVA. Cognition average. No evidence of psychosis. No evidence of an affective disorders. No danger to self or others. PLAN: Patient has no psychiatric disorder, does not require psychiatric treatment inpatient or outpatient. Thank you for this consult.. 02/24/17 08:43
--- NOTE | 2017-02-24 10:49 | PN ---
Mrs. Bowie is a 76-year-old female who recently underwent aortic valve replacement with TAVR approach. The patient was admitted to the hospital with altered mental status and evidence of an acute stroke. The patient seems to be more alert, seems to be alert, oriented, time, place, and person. She denies any chest pain or shortness of breath. The patient has left-sided weakness. Patient also being treated with antibiotics for urinary tract infection. The patient had a prolonged QT interval and was taken off the amiodarone. Her heart rate is improved. Her blood pressure has been fluctuating. Physical examination reveals an elderly female who is alert, does not appear to be in acute distress. Her blood pressure is about 190/85, pulse rate is 75, respirations 16. Lungs are clear. Heart is regular. No JVD. FINAL IMPRESSION: 1. Acute cerebrovascular accident. 2. Status post aortic valve replacement. 3. Hypertension, uncontrolled. PLAN: I will continue with the Norvasc and increase the dose to 10 mg, increase the dose of the lisinopril. The rest of the medications to be continued.
[2017-02-24] MEDS ORDERED: cloNIDine 0.1 MG/24HR PATCH 1 PATCH PATCH TRANSDERM SCH (12:00)
--- NOTE | 2017-02-24 12:07 | PN ---
DATE OF SERVICE: 02/23/2017 ( ) This patient seen and examined by me. I reviewed the note of my nurse practitioner, Ms. Lambert, discussed with her. Patient overall doing much better. Blood pressure was running high. No chest pain. Norvasc was added earlier. On examination, lungs are clear. CARDIOVASCULAR: First and second sounds are normal. Blood pressure is 211/88. ASSESSMENT: 1. Acute stroke, likely ischemic on right side of the patient, causing some left-sided weakness, which has improved. 2. Acute urinary tract infection. 3. Accelerate hypertension. PLAN: At this point, will increase the Norvasc to 5 mg twice a day, also increase hydralazine to 25 mg 3 times a day. Check the blood pressure more frequently.
--- NOTE | 2017-02-24 12:38 | P.PN ---
Subjective Principal diagnosis: CVA This is a 76-year-old female who recently underwent aortic valve replacement with a tavern approach. She was admitted to the hospital with evidence of an acute stroke. Patient does seem alert today, denies any palpitations, no dizziness or lightheadedness. Still has some mild left-sided weakness. Currently on antibiotics for UTI. Blood pressure today remains in the 200 systolic range. We will add a clonidine patch to her medication regime in attempt to gradually control the blood pressure in setting of acute stroke. We will also replace the patient's potassium and magnesium. Objective - Vital Signs Vital signs: Vital Signs Temp 97.5 F L 02/24/17 08:00 Pulse 90 02/24/17 08:00 Resp 16 02/24/17 08:00 BP 205/84 02/24/17 08:00 Pulse Ox 96 02/24/17 08:00 Intake & Output 02/23/17 02/24/17 02/24/17 18:59 06:59 18:59 Intake Total 225 460 Output Total 100 Balance 225 460 -100 Weight 53.1 kg Intake: IV 160 Sodium Chloride 0.9% 1, 160 000 ml @ 50 mls/hr IV . Q20H LAURA Rx#:[id number] Oral 225 300 Output: Urine 100 Other: Voiding Method Toilet Toilet Toilet # Voids 1 1 # Bowel Movements 0 - Exam PHYSICAL EXAMINATION: HEENT: Head is atraumatic, normocephalic. Pupils equal, round. Neck is supple. There is no elevated jugular venous pressure. HEART EXAMINATION: Heart S1, S2 normal. No murmur or gallop heard. CHEST EXAMINATION: Lungs are clear to auscultation and precussion. No chest wall tenderness is noted on palpation or with deep breathing. ABDOMEN: Soft, nontender. Bowel sounds are heard. No organomegaly noted. EXTREMITIES: 2+ peripheral pulses with no evidence of peripheral edema and no calf tenderness noted. NEUROLOGIC patient is awake, alert and oriented -2. . - Labs CBC & Chem 7: 02/23/17 05:19 02/20/17 11:15 Assessment and Plan (1) S/P AVR (aortic valve replacement) Status: Acute (2) CVA (cerebral vascular accident) Status: Acute (3) Hypertension Status: Chronic Plan: From cardiology's perspective, we will start the patient on clonidine patch TTS 1 today. She was noted to have a prolonged QT in the setting of this acute CVA , we'll continue to monitor. Replace magnesium. DNP note has been reviewed, I agree with a documented findings and plan of care. Patient was seen and examined.
[2017-02-24] MEDS: MAGNESIUM SULFATE-D5W PMX 1 GM in DEXTROSE/WATER 1 100ML.BAG IVPB SCH ×2 (17:05→18:56)
[2017-02-24] MEDS: LATANOPROST 0.005% OPHTH DROPS 2.5 ML BTL RIGHT EYE SCH (22:19)
[2017-02-24] MEDS: ATORVASTATIN 20 MG TAB PO SCH (22:19)
--- NOTE | 2017-02-25 05:38 | PN ---
DATE OF SERVICE: 02/24/2017 PRESENTING COMPLAINT: Acute confusion. INTERVAL HISTORY: This is a 76-year-old female who lives at [facility]. Patient generally speaking is ambulatory and able to care for herself; however, she was found down by staff on the floor lying between the bed and the nightstand. On exam today, patient is awake, alert and continues to be more conversant and interactive and responds appropriately to questions. Patient is able to answer straightforward simple questions. We have had a difficult time managing her blood pressure and this morning it continues to remain out of control. Review of systems done for cardiac, constitutional, GI, pulmonary with relevant findings as above. CURRENT MEDICATIONS: Norvasc, Catapres patch, Apresoline, Plavix. PHYSICAL EXAMINATION: VITAL SIGNS: Temperature 97.5, pulse 90, ( ) 16, blood pressure 205/84 retake of that blood pressure was 196/81, oxygen saturation 96% on room air. GENERAL APPEARANCE: Patient is awake, alert, looking a little pale; however, conversant, able to answer questions in simple form, but able to answer questions nonetheless. No acute distress noted or voiced. EYES: Pupils equal. Conjunctivae normal. NECK: JVD not raised. Mass not palpable. LUNGS: Slightly decreased bilaterally. RESPIRATORY: Effort normal, unlabored. CARDIOVASCULAR: First and second sounds noted. No edema. ABDOMEN: Soft, nontender. Liver and spleen not palpable. PSYCHIATRIC: Patient is awake and alert. Mood and affect are appropriate for the situation. INVESTIGATIONS: No new labs. No new exams to report. ASSESSMENT: 1. Brainstem stroke probably affecting the system altered sensorium. 2. Hypertensive urgency, present on admission, slow to respond. 3. Chronic congestive heart failure, ejection fraction unknown. 4. Hyperlipidemia. 5. Paroxysmal atrial fibrillation, currently may be in sinus rhythm to sinus antoine. 6. CODE STATUS: DO NOT RESUSCITATE. PLAN: Continue neuro checks. Aspiration precautions will be continued as well. Today Cardiology has changed medications and added a clonidine patch. We will increase blood pressure checks to occur more frequently; therefore, we can monitor better our interventions. Will follow. Patient was seen and examined by nurse practitioner, Lurdes Lambert, and all elements of the case were discussed with the attending, Dr. Mejía.
[2017-02-25] MEDS: ASPIRIN 81 MG CHEW PO SCH (07:47)
[2017-02-25] MEDS: CLOPIDOGREL 75 MG TAB PO SCH (07:47)
[2017-02-25] MEDS: CEFUROXIME 250 MG TAB PO SCH ×2 (07:47→21:37)
[2017-02-25] MEDS: LISINOPRIL 20 MG TAB PO SCH ×2 (07:47→21:37)
[2017-02-25] MEDS: hydrALAZINE HCL 25 MG TAB PO SCH ×3 (07:47→21:38)
[2017-02-25] MEDS: amLODIPine 5 MG TAB PO SCH ×2 (07:47→21:37)
[2017-02-25 10:02] VITALS: BMI 21.4
--- NOTE | 2017-02-25 11:37 | PN ---
DATE OF SERVICE: 02/24/2017 ATTENDING NOTE: This patient was seen and examined by me earlier today. Patient was admitted with acute stroke to the [facility]. Blood pressure is still running high. Medications are being adjusted . On exam, Lungs are clear. CARDIOVASCULAR: First and second sounds normal. Patient able to carry on a normal conversation. Blood pressure still high in the morning. PLAN: Increase hydralazine to 25 mg 3 times a day and see how she does. I talked to the patient about the same. u
--- NOTE | 2017-02-25 13:18 | P.PN ---
Subjective Principal diagnosis: CVA This is a 76-year-old female who recently underwent aortic valve replacement with a TAVR approach. She was admitted to the hospital with evidence of an acute stroke. Patient does seem alert today, denies any palpitations, no dizziness or lightheadedness. Still has some mild left-sided weakness. Currently on antibiotics for UTI. Blood pressure today remains in the 150 systolic range. Clonidine patch was added to her medication regime yesterday. Objective - Vital Signs Vital signs: Vital Signs Temp 98 F 02/25/17 12:00 Pulse 84 02/25/17 12:00 Resp 18 02/25/17 12:00 BP 119/55 02/25/17 12:00 Pulse Ox 93 L 02/25/17 12:00 Intake & Output 02/24/17 02/25/17 02/25/17 18:59 06:59 18:59 Intake Total 120 560 720 Output Total 700 300 Balance -580 260 720 Weight 53.3 kg 53.3 kg Intake: IV 160 Sodium Chloride 0.9% 1, 160 000 ml @ 50 mls/hr IV . Q20H LAURA Rx#:[id number] Intake, IV Titration 100 Amount Magnesium Sulfate-D5w Pmx 100 1 gm In Dextrose/Water 1 100ml.bag @ 100 mls/hr IVPB Q1H LAURA Rx#: [id number] Oral 120 300 720 Output: Urine 700 300 Other: Voiding Method Toilet Toilet Toilet # Voids 5 1 # Bowel Movements 0 - Exam PHYSICAL EXAMINATION: HEENT: Head is atraumatic, normocephalic. Pupils equal, round. Neck is supple. There is no elevated jugular venous pressure. HEART EXAMINATION: Heart S1, S2 normal. No murmur or gallop heard. CHEST EXAMINATION: Lungs are clear to auscultation and precussion. No chest wall tenderness is noted on palpation or with deep breathing. ABDOMEN: Soft, nontender. Bowel sounds are heard. No organomegaly noted. EXTREMITIES: 2+ peripheral pulses with no evidence of peripheral edema and no calf tenderness noted. NEUROLOGIC patient is awake, alert and oriented -2. . - Labs CBC & Chem 7: 02/23/17 05:19 02/20/17 11:15 Labs: Microbiology - Last 24 Hours (Table) 02/20/17 11:15 Blood Culture - Preliminary Blood No Growth after 96 hours Assessment and Plan (1) S/P AVR (aortic valve replacement) Status: Acute (2) CVA (cerebral vascular accident) Status: Acute (3) Hypertension Status: Chronic Plan: From cardiology's perspective, we will continue the clonidine patch 0.1, if the patient's blood pressure remains above 150 consider increasing 2.2 tomorrow. We will continue to monitor. DNP note has been reviewed, I agree with a documented findings and plan of care. Patient was seen and examined.
--- NOTE | 2017-02-25 16:12 | PN ---
DATE OF SERVICE: 02/25/2017 PRESENTING COMPLAINT: Acute confusion. INTERVAL HISTORY: This is a 76-year-old female who lives at [facility]. Patient, generally speaking, is ambulatory, able to care for herself; however, she was found down by staff on the floor lying between the bed and the nightstand. On exam today, patient is awake and alert, continues to be more conversant and interactive, and responds appropriately to questions. Patient is able to answer straightforward simple questions. Patient's blood pressure continues to be elevated in 170s over 60s and Cardiology initiated a Catapres patch on 02/24. Will await new adjustments regarding these medications. Review of systems done for cardiac, constitutional, GI, pulmonary, with relevant findings as above. CURRENT MEDICATIONS: 1. Norvasc. 2. Catapres patch. 3. Apresoline. 4. Plavix. PHYSICAL EXAMINATION: VITAL SIGNS: Temperature 98.0, pulse 84, respirations 16, blood pressure 154/67, oxygen saturation 94% on room air. GENERAL APPEARANCE: Patient is awake, alert. Looks slightly pale; however, conversant, able to answer questions in simple form. No acute distress noted or voiced. EYES: Pupils equal. Conjunctivae normal. NECK: JVD not raised. Mass not palpable. LUNGS: Slightly decreased bilaterally. Respiratory effort normal, unlabored. CARDIOVASCULAR: First and second sounds noted. No edema. ABDOMEN: Soft, nontender. Liver and spleen not palpable. PSYCHIATRY: Patient is awake and alert. Mood and affect are appropriate for the situation. INVESTIGATIONS: No new lab values. No new tests. ASSESSMENT: 1. Brainstem stroke probably affecting the system altered sensorium. 2. Hypertensive urgency, present on admission, slow to respond. 3. Chronic congestive heart failure; ejection fraction unknown. 4. Hyperlipidemia. 5. Paroxysmal atrial fibrillation, currently in sinus rhythm to sinus antoine. 6. CODE STATUS: DO NOT RESUSCITATE. PLAN: Continue neuro checks. Aspiration precautions will be continued as well. Today Cardiology elected to continue the clonidine patch at 0.1 mg and is considering increasing that patch if blood pressure remains above 150. We will continue to monitor blood pressure more frequently. Patient has been seen and examined by nurse practitioner, Lurdes Lambert, and all elements of the case were discussed with the attending, Dr. Mejía.
[2017-02-25] MEDS: ATORVASTATIN 20 MG TAB PO SCH (21:37)
[2017-02-25] MEDS: LATANOPROST 0.005% OPHTH DROPS 2.5 ML BTL RIGHT EYE SCH (21:38)
[2017-02-26] MEDS: ALPRAZolam 0.25 MG TAB PO PRN (01:46)
[2017-02-26 06:52] LABS: Anion Gap 5 mmol/L; Calcium 8.7 mg/dL (8.4-10.2); Carbon Dioxide 27 mmol/L (22-30); Chloride 106 mmol/L (98-107); Glucose 99 mg/dL (74-99); Non-African American GFR(MDRD) >60 (>60 ml/min/1.73 sqM); Sodium 138 mmol/L (137-145)
[2017-02-26 06:56] LABS: Blood Urea Nitrogen 11 mg/dL (7-17); Magnesium 2.2 mg/dL (1.6-2.3); Potassium 4.8 mmol/L (3.5-5.1)
[2017-02-26] MEDS: LISINOPRIL 20 MG TAB PO SCH ×2 (07:48→22:09)
[2017-02-26] MEDS: CLOPIDOGREL 75 MG TAB PO SCH (07:48)
[2017-02-26] MEDS: amLODIPine 5 MG TAB PO SCH ×2 (07:48→22:09)
[2017-02-26] MEDS: ASPIRIN 81 MG CHEW PO SCH (07:48)
[2017-02-26] MEDS: hydrALAZINE HCL 25 MG TAB PO SCH ×3 (07:48→22:09)
[2017-02-26] MEDS: CEFUROXIME 250 MG TAB PO SCH ×2 (07:48→22:09)
--- NOTE | 2017-02-26 09:04 | PN ---
DATE OF SERVICE: 02/25/2017 ATTENDING NOTE: This patient was seen examined by me earlier today. Patient presented with stroke. Laying comfortable, talking. Patient's blood pressure medications being adjusted. Catapres patch was added yesterday. On examination, temperature 98, pulse 84, respirations 16, blood pressure 111/55. Lying in bed, comfortable. LUNGS: Slightly decreased breath sounds. CARDIOVASCULAR: First and second sounds normal. ASSESSMENT: 1. Acute stroke to the erazo radiata. 2. Essential hypertension, now better controlled. PLAN: Keep the patient on current medications and if she remains stable hopefully discharge tomorrow.
[2017-02-26] MEDS ORDERED: ONDANSETRON 4 MG/2 ML VIAL IVP STA (09:59)
[2017-02-26] MEDS ORDERED: ONDANSETRON 4 MG/2 ML VIAL ONE (10:01)
--- NOTE | 2017-02-26 13:23 | PN ---
DATE OF SERVICE: 02/26/2017 PRESENTING COMPLAINT: Acute confusion. INTERVAL HISTORY: This is a 76-year-old female who lives at [facility]. Patient presented to the emergency department after being found down by staff. Today on exam, patient is awake and alert; however, complains about not feeling well. Does not want to be discharged today. Patient is able to answer simple straightforward questions. She is lying in the bed. No acute distress; however, does complain about stomach pain and nausea. Review of systems done for cardiac, constitutional, GI, pulmonary with relevant findings as above. CURRENT MEDICATIONS: Norvasc, Catapres patch, Apresoline, Plavix. PHYSICAL EXAMINATION: VITAL SIGNS: Temperature 96.8, pulse 78, respirations 16, blood pressure 156/71, oxygen saturation 94% on 2 L nasal cannula. GENERAL APPEARANCE: Patient is awake and alert, looks pale, complaining of nausea, able to answer questions in simple form. EYES: Pupils equal. Conjunctivae normal. NECK: JVD not raised. Mass not palpable. LUNGS: Slightly decreased bilaterally. RESPIRATORY: Effort normal, unlabored. CARDIOVASCULAR: First and second sounds noted. No edema. ABDOMEN: Soft, nontender. Liver and spleen not palpable. PSYCHIATRY: Patient is awake and alert. Mood and affect are normal. INVESTIGATIONS: Sodium 138, potassium 4.8, BUN 11, Creatinine 0.80. ASSESSMENT: 1. Brainstem stroke probably affecting the system altered sensorium. 2. Hypertensive urgency, present on admission, improving. 3. Chronic congestive heart failure; ejection fraction unknown. 4. Hyperlipidemia. 5. Paroxysmal atrial fibrillation, currently in sinus rhythm to sinus antoine. 6. CODE STATUS: DO NOT RESUSCITATE. PLAN: Neuro checks continue, aspiration precautions continue as well. Patient's blood pressure much improved over the last 24 hours with the addition of the Catapres patch. Given the patient's complaints of nausea, will attempt to discharge patient tomorrow. Will continue to monitor blood pressure frequently. Patient has been seen and examined by nurse practitioner, Lurdes Lambert, and all elements of the case were discussed with the attending, Dr. Mejía.
[2017-02-26] MEDS: LATANOPROST 0.005% OPHTH DROPS 2.5 ML BTL RIGHT EYE SCH (22:09)
[2017-02-26] MEDS: ATORVASTATIN 20 MG TAB PO SCH (22:09)
[2017-02-26] MEDS: ACETAMINOPHEN TAB 325 MG TAB PO PRN (22:10)
--- NOTE | 2017-02-26 22:22 | PN ---
DATE OF SERVICE: 02/26/2017 ATTENDING NOTE: This patient was seen and examined by me earlier today. I also reviewed the note of nurse practitioner Ms. Lambert and discussed with her. Patient is doing well, feeling a bit tired. Requesting to stay for another day. No chest pain. Current medications are reviewed. On examination, temperature 96.8, pulse 78, blood pressure 130/60. LUNGS: Slightly decreased breath sounds. CARDIOVASCULAR: First and second sounds normal. Neurologically, moving all 4 limbs. INVESTIGATIONS: Potassium 4.8. ASSESSMENT: 1. Acute stroke to the erazo radiata, with clinical improvement. 2. Essential hypertension, now better controlled. PLAN: Patient is doing well. Talked to the patient. She is requesting one more day in the hospital. Discharge tomorrow.
[2017-02-27] MEDS: ACETAMINOPHEN TAB 325 MG TAB PO PRN (03:38)
[2017-02-27] MEDS: hydrALAZINE HCL 25 MG TAB PO SCH (09:02)
[2017-02-27] MEDS: CEFUROXIME 250 MG TAB PO SCH (09:02)
[2017-02-27] MEDS: CLOPIDOGREL 75 MG TAB PO SCH (09:02)
[2017-02-27] MEDS: LISINOPRIL 20 MG TAB PO SCH (09:02)
[2017-02-27] MEDS: amLODIPine 5 MG TAB PO SCH (09:03)
[2017-02-27] MEDS: ASPIRIN 81 MG CHEW PO SCH (09:04)
[2017-02-27] MEDS ORDERED: PANTOPRAZOLE 40 MG TABLET PO STA (10:13)
[2017-02-27 10:25] VITALS: RESP 18
[2017-02-27 13:07] VITALS: BP 133/63; PULSE 80; TEMP 97.3
[2017-02-28] MEDS ORDERED: PANTOPRAZOLE 40 MG TABLET PO SCH (07:30)
--- NOTE | 2017-02-28 07:35 | DS ---
DATE OF ADMISSION: 02/20/2017 DATE OF DISCHARGE: 02/27/2017 FINAL DIAGNOSES: 1. Acute stroke to the erazo radiata with clinical improvement. 2. Essential hypertension, now better controlled. 3. Chronic congestive heart failure, ejection fraction unknown. 4. Hyperlipidemia. 5. Paroxysmal atrial fibrillation, currently in sinus rhythm to sinus antoine. 6. CODE STATUS: DO NOT RESUSCITATE. CONSULTATION: Dr. Gunn from cardiology, Dr. Arechiga from psychiatry, Dr. Guerrero from neurology. HOSPITAL COURSE: Patient was also found to be hypertensive on her stay. Head CT was ordered. Psychiatric consultation was also ordered. Neurology was consulted. EEG was performed. Carotid Doppler was performed. Patient's mental status improved. Patient was provided fluids. Blood pressure was treated with appropriate medications. Patient's blood pressure is now under better control. Patient has been able to get up and around with the assistance of a walker. This is a return to her baseline. Since patient has improved since admission therefore patient is being discharged. PHYSICAL EXAM: Patient is alert and oriented x2 to 3. This is her baseline. Slight amount of weakness noted to the left side. 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 No facial droop or deficit noted. No difficulty swallowing. Blood pressure is normalized to 133/63. Plan of care was discussed in detail with the patient. All questions were answered. DISCHARGE MEDICATIONS: 1. Alprazolam 0.25 mg p.o. at bedtime. 2. Tylenol 1000 mg p.o. q.4 to 6 hours p.r.n. 3. Aspirin, enteric coated, 81 mg p.o. daily. 4. Atorvastatin 20 mg p.o. at bedtime. 5. Cholecalciferol 5000 units p.o. daily. 6. Plavix 75 mg p.o. daily. 7. Latanoprost ophthalmic solution one drop right eye at bedtime. 8. Lisinopril 20 mg daily p.o. 9. Docusates sodium 1 tablet p.o. daily p.r.n. 10. Ceftin 250 mg p.o. b.i.d. 11. Amiodarone 200 mg p.o. daily. 12. Amlodipine 5 mg p.o. ( ). 13. Clonidine 0.1 mg 24-hour patch, one patch every 7 days. 14. Hydralazine 100 mg p.o. t.i.d. DISPOSITION: Patient will be discharged to [facility], which is where patient normally resides. Patient was seen and examined by nurse practitioner, Lurdes Lambert, and all elements of the case discussed with Dr. Mejía, attending.
--- NOTE | 2017-03-01 10:45 | DS ---
DATE OF ADMISSION: 02/20/2017 DATE OF DISCHARGE: 02/27/2017 ATTENDING NOTE: This patient was seen and examined by me. I agree with the note of my nurse practitioner Ms. Lambert. This patient was admitted with stroke; doing much better. Weakness has improved. On examination, lungs are clear. CARDIOVASCULAR: First and second seconds normal. Patient is using a walker. I reviewed the discharge note of my nurse practitioner Ms. Lambert. I discussed with her and agree with the same. Medications are reviewed. DISPOSITION: [facility]. Discharge planning more than 35 minutes.
== END 2017-02-27 17:08 | disposition home health service (06) | DRG 64 ==
LOC: EC 08:49 → 5MS5E 12:02 → 4MS4W 12:31 → 6SEL 18:49
PROVIDERS: ADMIT Hospitalist; ATTEND Hospitalist
DX: I63.9 Cerebral infarction, unspecified (principal); G93.40 Encephalopathy, unspecified; I48.0 Paroxysmal atrial fibrillation; I11.0 Hypertensive heart disease with heart failure; I50.9 Heart failure, unspecified; N39.0 Urinary tract infection, site not specified; I45.81 Long QT syndrome; E78.5 Hyperlipidemia, unspecified; H40.9 Unspecified glaucoma; H54.42 Blindness, left eye, normal vision right eye; I16.0 Hypertensive urgency; I25.10 Atherosclerotic heart disease of native coronary artery without angina pectoris; I65.21 Occlusion and stenosis of right carotid artery; Z66 Do not resuscitate; Z79.82 Long term (current) use of aspirin; Z79.899 Other long term (current) drug therapy; Z87.891 Personal history of nicotine dependence; Z88.2 Allergy status to sulfonamides; Z95.2 Presence of prosthetic heart valve; Z79.02 Long term (current) use of antithrombotics/antiplatelets
CPT/HCPCS: 36415; 70450; 70496; 71010; 72125; 72170; 80048; 80053; 80061; 81001; 82550; 82553; 83735; 84100; 84484; 85025; 85049; 85610; 85730; 87040; 87086; 93005; 93306; 93880; 95816; 96361; 96365; 96375; 96376; 99285